=== PATIENT | male | born 1975 | race Hispanic/Latino ===

== ENCOUNTER 2019-02-08 12:13 | Outpatient (CLI) | payer OTHER ==
--- NOTE | 2019-02-08 14:09 | RAD ---
LEFT ELBOW FOUR VIEWS: HISTORY: Elbow pain. FINDINGS: No evidence of fracture. No evidence of joint effusion. No osseous abnormality. IMPRESSION: Unremarkable examination. POS: OFF
== END 2019-02-08 12:14 | disposition home or self-care (01) ==
LOC: BICRAD 12:13
PROVIDERS: ATTEND Internal Medicine
DX: M25.522 Pain in left elbow (principal)